=== PATIENT | female | born 1945 | race Caucasian/White ===

== ENCOUNTER 2016-11-15 13:46 | Day surgery (SDC) | payer MEDICARE, OTHER ==
[2016-11-15] MEDS ORDERED: LACTATED RINGERS 1,000 ML IV ONE (15:54)
[2016-11-15] MEDS ORDERED: MIDAZOLAM 2 MG/2 ML VIAL IVP ONE (17:38)
[2016-11-15] MEDS ORDERED: fentaNYL 250 MCG/5 ML VIAL IVP ONE (17:38)
== END 2016-11-15 13:47 | disposition home or self-care (01) ==
PROC: 0DJD8ZZ Inspection of Lower Intestinal Tract, Via Natural or Artificial Opening Endoscopic (ICD-10-PCS; principal; 2016-11-15 14:55)
DX: Z48.815 Encounter for surgical aftercare following surgery on the digestive system (principal); K57.30 Diverticulosis of large intestine without perforation or abscess without bleeding; K64.8 Other hemorrhoids; Z79.82 Long term (current) use of aspirin; Z96.649 Presence of unspecified artificial hip joint; Z96.619 Presence of unspecified artificial shoulder joint; Z98.890 Other specified postprocedural states
CPT/HCPCS: 45378; J3010; J7120

== ENCOUNTER 2017-01-10 10:01 | Outpatient (CLI) | payer MEDICARE, OTHER | END 2017-01-10 10:02 | disposition home or self-care (01) | DX: Z79.890 Hormone replacement therapy (principal); Z78.0 Asymptomatic menopausal state ==

== ENCOUNTER 2017-01-10 10:02 | Outpatient (CLI) | payer MEDICARE, OTHER | END 2017-01-10 10:03 | disposition home or self-care (01) | DX: Z12.31 Encounter for screening mammogram for malignant neoplasm of breast (principal) ==

== ENCOUNTER 2017-03-17 06:52 | Day surgery (SDC) | payer MEDICARE, OTHER ==
[~2017-03-17 06:52] MED LIST: PHENYLEPHRINE 2.5% OPHTH 2 ML DROPS ONE
[2017-03-17] MEDS ORDERED: PHENYLEPHRINE 2.5% OPHTH 2 ML DROPS OPTH ONE (07:05)
[2017-03-17] MEDS ORDERED: KETOROLAC 0.45% OPHTH DROPS OPTH ONE (07:05)
[2017-03-17] MEDS ORDERED: PROPARACAINE 0.5% OPHTH DROPS 15 ML OPTH ONE ×2 (07:05→07:56)
[2017-03-17] MEDS ORDERED: CYCLOPENTOLATE 1% OPHTH DROPS 2 ML OPTH ONE (07:05)
[2017-03-17] MEDS ORDERED: LACTATED RINGERS 500 ML IV ONE (07:20)
[2017-03-17] MEDS ORDERED: TIMOLOL 0.5% OPHTH DROPS OPTH ONE (07:56)
[2017-03-17] MEDS ORDERED: BSS/LIDOCAINE/EPINEPHRINE 1 ML SYRINGE IO ONE ×2 (07:56)
[2017-03-17] MEDS ORDERED: TRIAMCIN/MOXIFLOX/VANCO 1 ML VIAL IO ONE ×2 (07:56)
[2017-03-17] MEDS ORDERED: EPINEPHrine 1 MG/ML AMP IVP ONE (07:56)
[2017-03-17] MEDS ORDERED: CHONDR SULF/HYALURONATE SYRINGE IO ONE (07:56)
[2017-03-17] MEDS ORDERED: BRIMONIDINE 0.2% OPHTH DROPS 5 ML OPTH ONE (07:56)
[2017-03-17] MEDS ORDERED: MIDAZOLAM 2 MG/2 ML VIAL IVP ONE (08:00)
[2017-03-17 08:22] VITALS: BP 133/48
--- NOTE | 2017-03-17 14:17 | OPERATIVE REPORT ---
DATE OF SURGERY: 03/17/2017 00:00:00 PREOPERATIVE DIAGNOSIS: Visually significant cataract, left eye. This is her first cataract surgery. POSTOPERATIVE DIAGNOSIS: Visually significant cataract, left eye. This is her first cataract surgery. NAME OF PROCEDURE: Phacoemulsification posterior chamber intraocular lens implant, left eye, with las er assist. SURGEON: Regulo Raman MD. ANESTHESIA: Monitored anesthesia care. COMPLICATIONS: None. OPERATIVE INDICATIONS: This is a 72-year-old woman with progressive vision loss in the left eye due t o 2+ nuclear sclerotic, 2+ cortical and trace posterior subcapsular cataract in the left eye. Indicat ions for surgery were difficulty reading, difficulty seeing words, closed captions, or game scores on TV, and difficulty with glare or bright lights in about any situation. She was consented at length c oncerning the risks and benefits of cataract surgery, after which she expressed a desire to proceed w ith surgery. OPERATIVE PROCEDURE: The patient was taken into OR #2 and placed under monitored anesthesia care. A s urgical time-out was conducted confirming the correct patient, correct procedure and correct surgical site. She was placed in the LenSx laser and her eye docked to the interface. The laser performed the capsulotomy, lens softening, phaco wounds, and arcuate keratotomy incisions. She was then moved to [facility] operating microscope, given topical anesthesia, and then prepped and draped in the usual sterile f ashion. The eye was entered at the 6- and 3 o'clock positions. Intracameral Shugarcaine was injected into the anterior chamber, followed by Viscoat. Capsulorrhexis flap created by the LenSx laser was re moved from the anterior chamber. The nucleus was hydrodissected and phacoemulsified. The cortex was e vacuated using automated infusion aspiration. Provisc was injected into the capsular bag and a 21.0 d iopter intraocular lens was inserted into the bag. Approximately 0.8 mL of a mixture of triamcinolone , moxifloxacin, and vancomycin was injected subconjunctivally in the superior quadrant for infection and inflammation prophylaxis. I/A was used to the evacuate the viscoelastic materials. The eye was in flated to physiologic pressure using balanced salt solution and found to be watertight. The patient w as taken from the operating room in good condition and given postoperative instructions. JOB #: [id number] EXT JOB #:[id number]
== END 2017-03-17 06:53 | disposition home or self-care (01) ==
LOC: SDS 06:52
PROVIDERS: ATTEND Ophthalmology
PROC: 08RK3JZ Replacement of Left Lens with Synthetic Substitute, Percutaneous Approach (ICD-10-PCS; principal; 2017-03-17 08:00)
DX: H25.812 Combined forms of age-related cataract, left eye (principal); J30.2 Other seasonal allergic rhinitis; R73.03 Prediabetes
CPT/HCPCS: 66984; A9270; V2632

== ENCOUNTER 2017-07-21 06:04 | Day surgery (SDC) | payer MEDICARE, OTHER ==
[2017-07-21] MEDS ORDERED: PROPARACAINE 0.5% OPHTH DROPS 15 ML ONE ×2 (06:28→07:15)
[2017-07-21] MEDS ORDERED: KETOROLAC 0.45% OPHTH DROPS ONE (06:28)
[2017-07-21] MEDS ORDERED: PHENYLEPHRINE 2.5% OPHTH 2 ML DROPS ONE (06:28)
[2017-07-21] MEDS ORDERED: CYCLOPENTOLATE 1% OPHTH DROPS 2 ML ONE (06:28)
[2017-07-21] MEDS ORDERED: LACTATED RINGERS 500 ML IV ONE (06:33)
[2017-07-21] MEDS ORDERED: PHENYLEPHRINE 2.5% OPHTH 2 ML DROPS OPTH ONE (06:45)
[2017-07-21] MEDS ORDERED: PROPARACAINE 0.5% OPHTH DROPS 15 ML OPTH ONE ×2 (06:45→07:20)
[2017-07-21] MEDS ORDERED: CYCLOPENTOLATE 1% OPHTH DROPS 2 ML OPTH ONE (06:45)
[2017-07-21] MEDS ORDERED: KETOROLAC 0.45% OPHTH DROPS OPTH ONE (06:45)
[2017-07-21] MEDS ORDERED: TIMOLOL 0.5% OPHTH DROPS ONE (07:14)
[2017-07-21] MEDS ORDERED: BRIMONIDINE 0.2% OPHTH DROPS 5 ML ONE (07:14)
[2017-07-21] MEDS ORDERED: CHONDR SULF/HYALURONATE SYRINGE IO ONE (07:19)
[2017-07-21] MEDS ORDERED: EPINEPHrine 1 MG/ML AMP IVP ONE (07:19)
[2017-07-21] MEDS ORDERED: BRIMONIDINE 0.2% OPHTH DROPS 5 ML OPTH ONE (07:19)
[2017-07-21] MEDS ORDERED: BSS/LIDOCAINE/EPINEPHRINE 1 ML SYRINGE IO ONE ×2 (07:20)
[2017-07-21] MEDS ORDERED: TIMOLOL 0.5% OPHTH DROPS OPTH ONE (07:20)
[2017-07-21] MEDS ORDERED: TRIAMCIN/MOXIFLOX/VANCO 1 ML VIAL IO ONE ×2 (07:21)
[2017-07-21] MEDS ORDERED: MIDAZOLAM 2 MG/2 ML VIAL IVP ONE (07:30)
[2017-07-21 08:33] VITALS: BP 138/78
--- NOTE | 2017-07-21 08:41 | OPERATIVE REPORT ---
DATE OF SURGERY: 07/21/2017 00:00:00 PREOPERATIVE DIAGNOSIS: Visually significant cataract, right eye. Cataract surgery was performed on the left eye on 01/15/2017. POSTOPERATIVE DIAGNOSIS: Visually significant cataract, right eye. Cataract surgery was performed on the left eye on 01/15/2017. NAME OF PROCEDURE: Phacoemulsification posterior chamber intraocular lens implant, right eye with laser assist. SURGEON: Regulo Raman MD. ANESTHESIA: Monitored anesthesia care. COMPLICATIONS: None. OPERATIVE INDICATIONS: This is a 72-year-old woman with progressive vision loss in the right eye due to 2+ nuclear sclerotic, 3+ cortical and trace posterior subcapsular cataract. Best corrected visual acuity was 20/25 with glare to 20/ 630 in the right eye. Indications for surgery were overall decrease in vision, difficulty seeing words on a computer screen, difficulty driving at night because of headlights from other vehicles and/or street lights, and difficulty with glare or bright lights in any situation. She was consented at length concerning the risks and benefits of cataract surgery, after which she expressed a desire to proceed with surgery. OPERATIVE PROCEDURE: The patient was taken into OR #2 and placed under monitored anesthesia care. A surgical time-out was conducted confirming the correct patient, correct procedure and correct surgical site. She was placed under the LenSx laser and her eye docked to the laser interface. The laser performed capsulotomy, lens softening, phaco wounds, and arcuate keratotomy incisions. She was then moved to the operating microscope, given topical anesthesia, and then prepped and draped in the usual sterile fashion. The eye was entered at the 12 and 9 o'clock positions. Intracameral Shugarcaine was injected into the anterior chamber, followed by Viscoat. Capsulorrhexis flap created by the LenSx laser was removed from the anterior chamber. The nucleus was hydrodissected and phacoemulsified. Cortex was evacuated using automated infusion aspiration. Provisc was injected into the capsular bag and a 21.0 diopter intraocular lens inserted into the bag. Approximately 0.7 mL of a mixture of triamcinolone, moxifloxacin, and vancomycin was injected subconjunctivally in the superior quadrant for infection and inflammation prophylaxis. I/A was used to evacuate the viscoelastic materials. The eye was inflated to a physiologic pressure using balanced salt solution and found to be water tight. The patient was taken from the operating room in good condition and given postoperative instructions. JOB #: [id number] EXT JOB #:[id number] CONNIE
== END 2017-07-21 06:05 | disposition home or self-care (01) ==
LOC: SDS 06:04
PROVIDERS: ATTEND Ophthalmology
PROC: 08RJ3JZ Replacement of Right Lens with Synthetic Substitute, Percutaneous Approach (ICD-10-PCS; principal; 2017-07-21 07:30)
DX: H25.811 Combined forms of age-related cataract, right eye (principal); E11.9 Type 2 diabetes mellitus without complications; Z79.84 Long term (current) use of oral hypoglycemic drugs
CPT/HCPCS: 66984; A9270; J3490; V2632

== ENCOUNTER 2020-08-31 22:01 | Outpatient (CLI) | payer MEDICARE, OTHER | END 2020-08-31 22:02 | disposition EMS.NT | LOC: EMS 22:01 | PROVIDERS: ATTEND Surgery | DX: R29.898 Other symptoms and signs involving the musculoskeletal system (principal) ==

== ENCOUNTER 2022-07-09 09:43 | Outpatient (CLI) | payer MEDICARE, OTHER ==
--- NOTE | 2022-07-09 12:02 | Ultrasound Report ---
PROCEDURE: Renal ultrasound INDICATIONS: CYSTOCELE MIDLINE, VOIDING DISFUNCTION TECHNIQUE: Real-time scanning was performed of the retroperitoneal organs, with image documentation. COMPARISON: None. FINDINGS: Kidneys: Kidneys are normal in size. Right kidney measures 9.5 cm long; left kidney measures 11.2 c m long. Right renal cortical thickness is 0.8 cm; left renal cortical thickness is 1.3 cm. No solid masses, hydronephrosis, or nephrolithiasis. Bladder: Pre-void bladder volume is 310 mL. Post-void residual is 192 mL. Pre-void images demonstr ate no intraluminal masses or stones. On pre-void images, bilateral ureteral jets are noted with col or Doppler interrogation. (Of note, ureteral jets may not be detectable in up to 25% of cases due to insufficient differences in specific gravity between ureteral and bladder urine). No ultrasound evidence of cystocele Miscellaneous: No free abdominal fluid. IMPRESSION: Post void residual 192 cc. No ultrasound evidence of cystocele Reviewed by: Christ Hobbs MD on 07/09/2022 11:01 AM DELLA Approved by: Christ Hobbs MD on 07/09/2022 11:01 AM DELLA Station ID: [id number]
== END 2022-07-09 09:44 | disposition home or self-care (01) ==
LOC: DI 09:43
PROVIDERS: ATTEND Urology
DX: N81.11 Cystocele, midline (principal); R39.198 Other difficulties with micturition

== ENCOUNTER 2022-11-10 10:22 | Emergency (ER) | payer MEDICARE, OTHER ==
[2022-11-10] MEDS ORDERED: iohexoL-300 100 ML VIAL ONE (11:12)
--- NOTE | 2022-11-10 11:16 | ED Physician Documentation ---
PD HPI ABD PAIN - Stated complaint Stated Complaint: ABD PX - Chief complaint Chief Complaint: Abd Pain - History obtained from History obtained from: Patient, Family (Patient's daughter) - Additional information Additional information: Patient is a 77-year-old presenting for evaluation of mid abdominal pain that started around 5:00 this morning. She reports eating pizza last night and thought it was related to that. The pain had worsened and she had associated nausea and so EMS was called. Her pain has improved but she still has some discomfort which she has difficulty in describing. Per the daughter, she has recently been evaluated for GI bleeds with upper and lower endoscopies and is on iron supplements. Patient less had a bowel movement yesterday and denies any blood. Review of Systems Constitutional: denies: Fever Cardiac: denies: Chest pain / pressure Respiratory: denies: Dyspnea GI: reports: Abdominal Pain, Nausea. denies: Vomiting, Constipation, Diarrhea : denies: Dysuria Musculoskeletal: denies: Back pain Neurologic: denies: Headache PD PAST MEDICAL HISTORY - Past Medical History Cardiovascular: None Respiratory: None Endocrine/Autoimmune: Type 2 diabetes GI: None : None HEENT: Chronic vision loss Psych: Claustrophobia Musculoskeletal: Osteoarthritis Derm: None - Past Surgical History Past Surgical History: Yes General: Bowel surgery, Colonoscopy Ortho: Hip replacement, Shoulder arthroplasty HEENT: Cataracts - Present Medications Home Medications: Ambulatory Orders Medication Instructions Recorded Confirmed ALPRAZolam [Xanax] 0.5 mg PO HS 06/24/16 07/20/17 Calcium Carb/Mag Ox/Zinc Sulf [Hm 1 each PO DAILY 06/24/16 07/20/17 [id number] Cplt] Metformin HCl 250 mg PO QDDINNER 06/24/16 07/20/17 Multivitamin [Multivitamins] 1 each PO DAILY 06/24/16 07/20/17 Mupirocin 22 gm TP BID 06/24/16 07/20/17 Perfect Iron 25 mg PO DAILY 06/24/16 07/20/17 Cholecalciferol (Vitamin D3) 2,000 unit PO DAILY 03/16/17 07/20/17 [Vitamin D] Sumatriptan Succinate [Imitrex] 100 mg PO ONCE PRN 07/20/17 07/20/17 cephALEXin [Keflex] 500 mg PO Q6H #28 cap 11/10/22 polyethylene glycoL 3350 [Miralax] 17 gm PO DAILY PRN #14 packet 11/10/22 - Allergies Allergies/Adverse Reactions: Allergies Allergy/AdvReac Type Severity Reaction Status Date / Time topiramate [From Topamax] Allergy Rash Verified 06/24/16 15:03 garlic AdvReac Intermediate Nausea Verified 03/16/17 14:50 - Social History Does the pt smoke?: No Smoking Status: Never smoker Does the pt drink ETOH?: No Does the pt have substance abuse?: No - Immunizations Immunizations are current?: Yes PD ED PE NORMAL - General General: Alert and oriented X 3, No acute distress, Well developed/nourished - HEENT HEENT: Atraumatic - Neck Neck: Supple, no meningeal sign - Cardiac Cardiac: RRR, No murmur - Respiratory Respiratory: No respiratory distress, Clear bilaterally - Abdomen Abdomen: Soft, Non distended, Other (Hypoactive bowel sounds, mid abdominal tenderness, no rebound, no guarding, no mass) - Back Back: No spinal TTP, Other (Well-healed lumbar incision) - Derm Derm: Warm and dry - Extremities Extremities: Other (Distal pulses intact) - Neuro Neuro: No motor deficit Results - Vitals Vitals: Oxygen O2 Source [With Activity] Room air O2 Source [Without Activity] Room air O2 Source Room air - Labs Labs: Microbiology 11/10/22 12:46 Urine Culture - Preliminary Urine,Random Laboratory Tests 11/10/22 11/10/22 11/10/22 11:16 11:16 12:46 WBC 8.8 RBC 4.30 Hgb 10.8 L Hct 34.9 L MCV 81.2 MCH 25.1 L MCHC 30.9 L RDW 26.5 H Plt Count 281 MPV 8.3 Neut # (Auto) 7.8 H Lymph # (Auto) 0.5 L [place] # (Auto) 0.5 Eos # (Auto) 0.0 Baso # (Auto) 0.0 Absolute Nucleated RBC 0.00 Nucleated RBC % 0.0 Manual Slide Review Indicated RBC Morph Micro Appear 4+ ANISOCYTOSIS Sodium 130 L Potassium 3.3 L Chloride 95 L Carbon Dioxide 26 Anion Gap 9.0 BUN 9 Creatinine 0.5 Estimated GFR (MDRD) 119 Glucose 161 H Calcium 9.2 Total Bilirubin 0.6 AST 20 ALT 14 Alkaline Phosphatase 94 Total Protein 7.3 Albumin 3.9 Globulin 3.4 Albumin/Globulin Ratio 1.1 Lipase 27 Urine Color YELLOW Urine Clarity CLOUDY Urine pH 7.5 Ur Specific [place] 1.015 Urine Protein NEGATIVE Urine Glucose (UA) NEGATIVE Urine Ketones 15 H Urine Occult Blood TRACE-INTACT Urine Nitrite POSITIVE H Urine Bilirubin NEGATIVE Urine Urobilinogen 0.2 (NORMAL) Ur Leukocyte Esterase LARGE H Urine RBC 0-5 Urine WBC >25 H Urine WBC Clumps PRESENT Ur Squamous Epith Cells FEW Squamous Urine Bacteria Moderate H Ur Microscopic Review INDICATED Urine Culture Comments INDICATED PD Medical Decision Making - ED course Complexity details: reviewed results, re-evaluated patient, d/w family ED course: Pt presenting for evaluation of abdominal pain. Labs reviewed with baseline anemia, mild hyponatremia and hypokalemia. No CP to suggest cardiac or pulmonary cause. U/A concerning for infection - will treat given pt's history of UTIs and reports having on going bladder issues due to delayed surgery for bladder sling. CT abd/pelvis reviewed. L5/S1 irregularity noted which I reviewed with patient. She did have back surgery several months ago but reports doing well from that standpoint and just saw her Orthopedic Surgeon last week who cleared her for PT. She denies back pain/fevers and has no tenderness on exam to suggest discitis. Stool burden noted. Discussed patient's current bowel regimen and she is comfortable with trial of Miralax. She is feeling better here and eager for discharge. Counseled on concerning symptoms to return for. Departure - Departure Disposition: 01 Home, Self Care Clinical Impression: Abdominal pain, Constipation, Urinary tract infection Condition: Stable Instructions: ED Abdominal Pain Female Non-Specific Abdominal Pain, ED Con stipation Prescriptions: cephALEXin [Keflex] 500 mg PO Q6H #28 cap polyethylene glycoL 3350 [Miralax] 17 gm PO DAILY PRN #14 packet PRN Reason: Constipation Comments: Your urine Shows an infection. I am going to start on an antibiotic. Your CT scan demonstrates a large amount of stool which could be contributing to your symptoms. I am also going to start you on MiraLAX daily. I sent these prescriptions to [facility] in [place]. There is also an irregularity noted to the area of L5-S1. However at this time it does not appear that you are having symptoms to suggest an infection in your back. If you develop back pain, fever or have any concerns please return to the emergency department. IMPRESSION: 1. No acute inflammatory changes in abdomen or pelvis. 2. A large amount of stool in colon. 3. Small periumbilical fat-containing ventral hernia. 4. Degenerative and postsurgical changes in the lower lumbar spine. 5. Mild loss of vertebral body height of L5. There is endplate irregularity involving the inferior endplate of L5 and superior endplate of S1, which may be degenerative in nature but an infectious process such as discitis cannot be excluded. Recommend clinical correlation. If clinically indicated, MRI with and without contrast can be obtained for further evaluation. Discharge Date/Time: 11/10/22 14:26
[2022-11-10 11:29] LABS: BASOPHILS % (AUTO) 0.3 %; HCT - HEMATOCRIT 34.9 % (37.0-47.0); HGB - HEMOGLOBIN 10.8 g/dL (12.0-16.0); LYMPHOCYTES # (AUTO) 0.5 10^3/uL (1.5-3.5); LYMPHOCYTES % (AUTO) 5.7 %; MEAN CORPUSCULAR HEMOGLOBIN 25.1 pg (27.0-31.0); MEAN CORPUSCULAR HGB CONC 30.9 g/dL (32.0-36.0); MEAN CORPUSCULAR VOLUME 81.2 fL (81.0-99.0); MEAN PLATELET VOLUME 8.3 fL (7.9-10.8); MONOCYTES # (AUTO) 0.5 10^3/uL (0.0-1.0); MONOCYTES % (AUTO) 5.8 %; NEUTROPHILS # (AUTO) 7.8 10^3/uL (1.5-6.6); NEUTROPHILS % (AUTO) 87.7 %; PLT - PLATELET COUNT 281 10^3/uL (130-450); RED CELL DISTRIBUTION WIDTH 26.5 % (12.0-15.0); WHITE BLOOD COUNT 8.8 x10^3/uL (4.8-10.8)
[2022-11-10 11:30] LABS: RBC MORPHOLOGY (MULTIPLE) 4+ ANISOCYTOSIS (NORMAL); SLIDE REVIEW? Indicated
[2022-11-10] MEDS ORDERED: MORPHINE 2 MG/ML CARPUJECT IVP STA (11:36)
[2022-11-10] MEDS ORDERED: ONDANSETRON 4 MG/2 ML VIAL IVP STA (11:36)
[2022-11-10 11:37] LABS: ALBUMIN 3.9 g/dL (3.2-5.5); ALBUMIN/GLOBULIN RATIO 1.1 (1.0-2.2); BILIRUBIN,TOTAL 0.6 mg/dL (0.2-1.0); CALCIUM 9.2 mg/dL (8.5-10.3); CREATININE 0.5 mg/dL (0.4-1.0); POTASSIUM 3.3 mmol/L (3.5-5.0); TOTAL PROTEIN 7.3 g/dL (6.7-8.2)
[2022-11-10 13:10] LABS: CLARITY,URINE CLOUDY (CLEAR); KETONES,URINE (UA) 15 mg/dL (NEGATIVE); LEUKOCYTE ESTERASE, URINE LARGE (NEGATIVE); NITRITE,URINE POSITIVE (NEGATIVE); OCCULT BLOOD,URINE TRACE-INTACT (NEGATIVE); PH,URINE 7.5 PH (5.0-7.5); PROTEIN,URINE NEGATIVE (NEGATIVE); UROBILINOGEN,URINE 0.2 (NORMAL) E.U./dL (NORMAL)
[2022-11-10 13:11] LABS: BACTERIA,URINE Moderate /HPF (None Seen); BILIRUBIN,URINE NEGATIVE (NEGATIVE); GLUCOSE, URINE (UA) NEGATIVE (NEGATIVE); RBC,URINE 0-5 /HPF (0-5); SQUAMOUS EPITHELIAL CELL,UR FEW Squamous (<= Few); WBC CLUMPS,URINE PRESENT; WBC,URINE >25 /HPF (0-5)
[2022-11-10 13:12] VITALS: BP 136/77
--- NOTE | 2022-11-10 13:17 | CT Report ---
PROCEDURE: ABDOMEN/PELVIS W INDICATIONS: pain/history of surgeries CONTRAST: 100ml Omnipaque 300 TECHNIQUE: After the administration of IV contrast, 5 mm thick sections acquired from the diaphragms to the symp hysis. 5 mm thick coronal and sagittal reformats were acquired. For radiation dose reduction, the f ollowing was used: automated exposure control, adjustment of mA and/or kV according to patient size. COMPARISON: CT abdomen and pelvis with, 09/18/2015. FINDINGS: Image quality: Excellent. ABDOMEN: Lung bases: Left basilar scars and atelectasis. Small hiatal hernia. Heart size is normal. There is moderate coronary artery calcification. Solid organs: Liver and spleen are normal in size and enhancement. Gallbladder is normal. Biliary system is non dilated. Pancreas enhances normally. No adrenal nodules. Kidneys demonstrate normal size and enhancement, without hydronephrosis. Peritoneum and bowel: Bowel loops demonstrate normal wall thickness and caliber. No free fluid or a ir. Nodes and vessels: No retroperitoneal or mesenteric adenopathy by size criteria. Aorta and inferior vena cava are normal in size. Miscellaneous: Small fat-containing periumbilical ventral hernia. PELVIS: Genitourinary: Bladder wall thickness is normal. Miscellaneous: No inguinal hernias or adenopathy. Bones: There are postsurgical changes in lower lumbar spine with laminectomy. There is grade 1 anter olisthesis of L3 on L4 and L4-L5, and grade 1 retrolisthesis of L2 on L3 and L5 on S1. Severe degener ative disc and facet disease in lumbar spine. Osteopenia. There is mild loss of vertebral body height L5. There is irregularity in the inferior endplate of L5 and superior endplate of S1. IMPRESSION: 1. No acute inflammatory changes in abdomen or pelvis. 2. A large amount of stool in colon. 3. Small periumbilical fat-containing ventral hernia. 4. Degenerative and postsurgical changes in the lower lumbar spine. 5. Mild loss of vertebral body height of L5. There is endplate irregularity involving the inferior en dplate of L5 and superior endplate of S1, which may be degenerative in nature but an infectious proce ss such as discitis cannot be excluded. Recommend clinical correlation. If clinically indicated, MRI with and without contrast can be obtained for further evaluation. The result was discussed with Dr. Rose. Reviewed by: Kristin Ruelas MD on 11/10/2022 12:16 PM AKST Approved by: Kristin Ruelas MD on 11/10/2022 12:16 PM AKST Station ID: [id number]
[2022-11-10] MEDS ORDERED: cephALEXin 250 MG CAPSULE PO STA (14:05)
[2022-11-10] MEDS ORDERED: POTASSIUM CHLORIDE 20 MEQ TABLET PO STA (14:05)
[2022-11-10] MEDS ORDERED: iohexoL-300 100 ML VIAL IVP ONE (16:22)
== END 2022-11-10 14:26 | disposition home or self-care (01) ==
LOC: EDBD → EDUNIT# → ED 10:22
DX: K59.00 Constipation, unspecified (principal); N39.0 Urinary tract infection, site not specified; E87.6 Hypokalemia
CPT/HCPCS: 36415; 74177; 80053; 81001; 83690; 85025; 87077; 87086; 87181; 96374; 99283; 99284; A9270; Q9967; 81003